=== PATIENT | female | born 1995 | race African-American/Black ===

== ENCOUNTER 2022-02-14 00:46 | Emergency (ER) | payer OTHER ==
[2022-02-14] MEDS ORDERED: LIDOCAINE 2% MDV 20ML VIAL SC ONE (00:55)
[2022-02-14] MEDS ORDERED: FERR325T3 PO (01:03)
[2022-02-14] MEDS ORDERED: TRAM50TA2 PO (02:33)
[2022-02-14] MEDS ORDERED: traMADol 50 MG TAB PO ONE (02:40)
[2022-02-14] MEDS ORDERED: NEOSPORIN OINT 0.9 GM PKT TOP ONE (02:40)
[2022-02-14 03:08] VITALS: BP 127/81
== END 2022-02-14 03:27 | disposition home or self-care (01) ==
LOC: EDBD 00:46 → M ED 00:46
DX: S66.002A Unspecified injury of long flexor muscle, fascia and tendon of left thumb at wrist and hand level, initial encounter (principal); S61.442A Puncture wound with foreign body of left hand, initial encounter; W26.0XXA Contact with knife, initial encounter; D64.9 Anemia, unspecified; F10.10 Alcohol abuse, uncomplicated; Z79.899 Other long term (current) drug therapy; Y92.009 Unspecified place in unspecified non-institutional (private) residence as the place of occurrence of the external cause; Y93.G1 Activity, food preparation and clean up

== ENCOUNTER 2022-02-17 16:58 | Day surgery (SDC) | payer OTHER ==
[~2022-02-17] VITALS: Ht 154.9 cm; Wt 57.2 kg
[2022-02-18] MEDS ORDERED: propofoL 200 MG/20 ML VIAL As Ordered ONE (09:52)
[2022-02-18] MEDS ORDERED: LIDOCAINE 2% 100MG/5ML SDV (FOR ANES.) As Ordered ONE (09:53)
[2022-02-18] MEDS ORDERED: fentaNYL 250 MCG/5 ML INJECTION As Ordered ONE (09:53)
[2022-02-18] MEDS ORDERED: MIDAZOLAM INJ 2MG/2ML VIAL As Ordered ONE (09:54)
[2022-02-18] MEDS ORDERED: ONDANSETRON 4MG 2ML VIAL As Ordered ONE (09:54)
[2022-02-18] MEDS ORDERED: BUPIVACAINE HCL 0.25% 30ML VIAL As Ordered ONE (10:24)
[2022-02-18] MEDS ORDERED: ceFAZolin 2 GM/D5W 50 ML IV BAG As Ordered ONE (11:15)
[2022-02-18] MEDS ORDERED: BACITRACIN OINTMENT 30GM TUBE As Ordered ONE (11:40)
[2022-02-18] MEDS ORDERED: KETOROLAC 60MG 2ML VIAL As Ordered ONE (11:41)
[2022-02-18] MEDS ORDERED: METOCLOPRAMIDE INJ 10MG/2ML VIAL As Ordered ONE (11:47)
[2022-02-18] MEDS ORDERED: oxyCODONE 5MG TAB PO PRN (12:00)
[2022-02-18] MEDS ORDERED: LR 1,000 ML IV SCH (12:00)
[2022-02-18] MEDS ORDERED: fentaNYL 100 MCG/2 ML INJECTION IV PRN (12:00)
[2022-02-18] MEDS ORDERED: METOCLOPRAMIDE INJ 10MG/2ML VIAL IV PRN (12:00)
[2022-02-18] MEDS ORDERED: PROMETHAZINE 25MG/ML 1ML VIAL IV PRN (12:00)
[2022-02-18] MEDS ORDERED: ONDANSETRON 4MG 2ML VIAL IV PRN (12:00)
[2022-02-18 13:02] VITALS: BP 145/99
== END 2022-02-18 13:14 | disposition home or self-care (01) ==
LOC: M SDC 16:58
PROVIDERS: ATTEND Orthopaedic Surgery Hand Surgery
DX: M79.642 Pain in left hand (principal); D64.9 Anemia, unspecified
CPT/HCPCS: 10140; 73130; 81025; 87635; J0690; J1100; J1885; J2250; J2405; J2765; J3010

== ENCOUNTER → 2022-02-17 | Outpatient (CLI) | payer OTHER ==
[~2022-02-17] MED LIST: FERR325T3 PO; TRAM50TA2 PO
== END ==
LOC: M SOG 13:06
PROVIDERS: ATTEND Physician Assistant
DX: M79.642 Pain in left hand (principal)

== ENCOUNTER → 2022-03-30 | Outpatient (RCR) | payer OTHER | LOC: M OT 03-25 14:21 | PROVIDERS: ATTEND Orthopaedic Surgery Hand Surgery | DX: S61.012D Laceration without foreign body of left thumb without damage to nail, subsequent encounter (principal) ==

== ENCOUNTER 2022-04-23 13:45 | Outpatient (RCR) | payer OTHER | END 2022-04-27 | LOC: M OT 13:45 | PROVIDERS: ATTEND Orthopaedic Surgery Hand Surgery | DX: S61.102A Unspecified open wound of left thumb with damage to nail, initial encounter (principal); X58.XXXA Exposure to other specified factors, initial encounter; Y92.9 Unspecified place or not applicable; Y93.9 Activity, unspecified; Y99.9 Unspecified external cause status ==